=== PATIENT | male | born 1945 | race Caucasian/White ===

== ENCOUNTER → 2018-11-05 | Outpatient (CLI) | payer MEDICARE, MEDICAID ==
[2018-11-05 12:20] LABS: POTASSIUM 4.6 MMOL/L (3.6-5.0); SODIUM 141 MMOL/L (135-145)
[2018-11-05 12:21] LABS: ALANINE AMINOTRANSFERASE < 5 U/L (0-55); ALBUMIN 4.2 GM/DL (3.2-4.5); ALKALINE PHOSPHATASE 68 U/L (40-136); BILIRUBIN,TOTAL 0.4 MG/DL (0.1-1.0); BUN/CREATININE RATIO 19; CALCIUM 9.7 MG/DL (8.5-10.1); CARBON DIOXIDE 25 MMOL/L (21-32); CHLORIDE 104 MMOL/L (98-107); CREATININE SERUM 1.13 MG/DL (0.60-1.30); GFR ESTIMATED > 60; GLUCOSE 104 MG/DL (70-105); TOTAL PROTEIN 7.1 GM/DL (6.4-8.2)
[2018-11-05 14:53] LABS: CHOLESTEROL 150 MG/DL (< 200); HDL CHOLESTEROL 48 MG/DL (40-60); TRIGLYCERIDES 40 MG/DL (<150); VLDL CHOLESTEROL 8 MG/DL (5-40)
== END ==
LOC: LAB FS 11:04
PROVIDERS: ATTEND Pediatrics
DX: I10 Essential (primary) hypertension (principal); Z12.5 Encounter for screening for malignant neoplasm of prostate
CPT/HCPCS: 36415; 80053; 80061; 84153

== ENCOUNTER 2018-11-14 18:01 | Emergency (ER) | payer MEDICARE, MEDICAID ==
[~2018-11-14] VITALS: Ht 167.6 cm; Wt 83.0 kg
[2018-11-14 18:30] VITALS: BP 132/66
--- NOTE | 2018-11-14 18:51 | Diagnostic Imaging Report ---
INDICATION: Cough and congestion. PA and lateral chest. FINDINGS: Heart size and pulmonary vascularity are normal. Lungs are clear. There are no effusions or pneumothoraces. IMPRESSION: Negative chest. Dictated by: Dictated on workstation # [id number]
--- NOTE | 2018-11-14 19:03 | ED EENT ---
History of Present Illness General Chief Complaint: Oral/Throat Problems Stated Complaint: CONGESTION Source: patient Exam Limitations: no limitations History of Present Illness Date Seen by Provider: Nov 14, 2018 Time Seen by Provider: 19:04 Initial Comments Patient is a 73-year-old male with history of Parkinson's and MR who presents with his niece who is his dog food dough mixer. Patient has had nasal congestion rhinorrhea, sore throat and cough for the past 4 days. Patient feels as though the respiratory infection is now settled into his chest. No shortness breath, wheezing, history of COPD, CAD or congestive heart failure. No nausea vomiting or sweats. Tactile fever reported only today. No other acute symptoms or complaints. Patient has not been evaluated for symptoms prior to today's ED visit. Timing/Duration: gradual Location: nose, throat Prearrival Treatment: no prearrival treatment Modifying Factors: Improves With Lying Down Associated Symptoms: denies symptoms, cough, sore throat, voice change Allergies and Home Medications Patient Home Medication List Home Medication List Reviewed: Yes Review of Systems Review of Systems Constitutional: see HPI Eyes: See HPI Ears: See HPI Nose: see HPI Mouth: see HPI Throat: see HPI Respiratory: see HPI Cardiovascular: see HPI Musculoskeletal: see HPI Neurological: See HPI Hematologic/Lymphatic: See HPI Immunological/Allergic: see HPI Past Vxqcnup-Obxxme-Kldram Hx Past Med/Social Hx: Reviewed Nursing Past Med/Soc Hx Patient Social History Recent Foreign Travel: No Contact w/Someone Who Travel: No Physical Exam Height, Weight, BMI Height: '" Weight: lbs. oz. kg; BMI Method: General Appearance: WD/WN, no apparent distress Eyes: bilateral eye normal inspection, bilateral eye PERRL, bilateral eye EOMI, bilateral eye conjunctival inflammation Nose: normal inspection, active bleeding Mouth/Throat: normal mouth inspection, other (pharyngeal erythema) Neck: non-tender, full range of motion Cardiovascular: normal peripheral pulses, regular rate, rhythm Respiratory: chest non-tender, lungs clear Gastrointestinal: non tender, soft Neurologic/Psychiatric: kinesiotherapist II-XII nml as tested, no motor/sensory deficits, normal mood/affect Skin: normal color Progress/Results/Core Measures Results/Orders Lab Results Laboratory Tests Test 11/14/18 18:36 Range/Units Group A Streptococcus Screen POSITIVE H NEGATIVE My Orders Orders - TSERING LOZOYA DO Rapid Strep A Screen (11/14/18 18:26) Chest Pa/Lat (2 View) (11/14/18 18:26) Departure Communication (Admissions) Chest x-ray: No acute cardiopulmonary disease. Vital signs stable. Strep A positive. Anabolic's prescribed recommend watchful and PCP follow-up. Return precautions reviewed. Impression Primary Impression: Streptococcal sore throat Disposition: HOME, SELF-CARE Condition: Improved Departure-Patient Inst. Referrals: CHERI JAMES MD (PCP/Family) Primary Care Physician Patient Instructions: Strep Throat (DC) Add. Discharge Instructions: Please fill antibiotics and take medication as directed. Follow-up with your PCP in 5-7 days for reevaluation. All discharge instructions reviewed with patient and/or family. Voiced understanding. TSERING LOZOYA DO Nov 14, 2018 19:03
[2018-11-14] MEDS ORDERED: AMOX500C2 PO ×2 (19:09→19:12)
== END 2018-11-14 19:20 | disposition home or self-care (01) ==
LOC: EDUNIT# 18:01 → ER FS 18:03
DX: J02.0 Streptococcal pharyngitis (principal); G20 Parkinson's disease
CPT/HCPCS: 71046; 87430

== ENCOUNTER 2019-02-10 23:35 | Emergency (ER) | payer MEDICARE, MEDICAID ==
[~2019-02-10] VITALS: Ht 172 cm; Wt 79.0 kg
[~2019-02-10 23:35] MED LIST: AMOX500C2 PO
--- NOTE | 2019-02-10 23:40 | ED General ---
General Stated Complaint: RIGHT FOOT PAIN History of Present Illness Date Seen by Provider: Feb 10, 2019 Time Seen by Provider: 23:40 Initial Comments Patient brought in by family for evaluation of second third and fourth toe bruising noted tonight while niece was cutting his toenails. Reportedly he fell 2 days ago outside but this was not witnessed by anyone. He ambulates with his walker and has continued to ambulate at his baseline but he says it hurts more to do so at this time. Patient has a history of Parkinson's and MR. He denies weakness numbness or tingling. Allergies and Home Medications Allergies Coded Allergies: No Known Drug Allergies (Unverified , 11/14/18) Home Medications Amoxicillin 500 Mg Capsule, 500 MG PO BID Prescribed by: TSERING LOZOYA on 11/15/181751 Amoxicillin 500 Mg Capsule, 500 MG PO BID Prescribed by: TSERING LOZOYA on 11/14/181911 Patient Home Medication List Home Medication List Reviewed: Yes Review of Systems Review of Systems Constitutional: no symptoms reported EENTM: no symptoms reported Respiratory: no symptoms reported Cardiovascular: no symptoms reported Genitourinary: no symptoms reported Musculoskeletal: joint pain Skin: no symptoms reported All Other Systems Reviewed Negative Unless Noted: Yes Past Qojvzdc-Bobthy-Hrqmwy Hx Patient Social History 2nd Hand Smoke Exposure: No Recent Foreign Travel: No Contact w/Someone Who Travel: No Recent Hopitalizations: No Seasonal Allergies Seasonal Allergies: No Past Medical History Surgeries: Yes (right rotator cuff repair) Respiratory: No Cardiac: No Neurological: Yes Parkinson's Disease Genitourinary: No Gastrointestinal: No Musculoskeletal: No Endocrine: No HEENT: No Cancer: No Psychosocial: No Integumentary: No Blood Disorders: No Physical Exam Vital Signs Vital Signs - First Documented 02/10/19 23:42 Temp 37.0 Pulse 88 Resp 16 B/P (MAP) 160/90 (113) Pulse Ox 96 O2 Delivery Room Air Capillary Refill : Height, Weight, BMI Height: 5'6.00" Weight: 183lbs. oz. 83.320193px; BMI Method:Stated General Appearance: Chronically ill Respiratory: No Respiratory Distress Cardiovascular: Regular Rate, Rhythm Extremity: Other (R foot with bruising to proximal phalanges of dorsal 2nd, 3rd, 4th toes. Cap refill appx 2 seconds in all digits. 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 No erythema or warmth or drainage to indicate infection.) Neurologic/Psychiatric: No Motor/Sensory Deficits Progress/Results/Core Measures Suspected Sepsis SIRS Temperature: Pulse: Respiratory Rate: Blood Pressure / Mean: Results/Orders My Orders Orders - FRANCO DURHAM DO Foot 3 View Right (02/10/19 23:46) Vital Signs/I&O 02/10/19 23:42 Temp 37.0 Pulse 88 Resp 16 B/P (MAP) 160/90 (113) Pulse Ox 96 O2 Delivery Room Air Capillary Refill : Progress Note : Progress Note No s/s of emergent vascular or infectious condition. Likely bruising from trauma. Compartments soft. Will check XR and reassess. XR shows no acute changes to me. Will DC with soft shoe and ortho f/u. Rec PCP f/u as well. Patient discharged in stable condition. Departure Impression Primary Impression: Contusion of foot Disposition: 01 HOME, SELF-CARE Condition: Stable Departure-Patient Inst. Referrals: CHERI JAMES MD (PCP/Family) Primary Care Physician Patient Instructions: Contusion (DC) FRANCO DURHAM DO Feb 10, 2019 23:40
[2019-02-11 00:18] VITALS: BP 160/90
--- NOTE | 2019-02-11 06:31 | Diagnostic Imaging Report ---
CLINICAL HISTORY: Right foot pain. Fall 2 days ago. COMPARISON: None TECHNIQUE: 3 views of the right foot. FINDINGS: There is no acute fracture or dislocation of the right foot. Old fracture of the fifth right metatarsal is noted. Degenerative changes are present throughout the right foot with marginal osteophytes and joint space narrowing. A small amount of soft tissue edema is seen overlying the dorsum of the right foot. IMPRESSION: 1. No acute fracture or dislocation of the right foot. Small amount of soft tissue edema is seen overlying the dorsum of the right foot. 2. Degenerative changes in the right foot. Healed old fracture of the right fifth metatarsal is noted. Dictated by: Dictated on workstation # [id number]
== END 2019-02-11 00:20 | disposition home or self-care (01) ==
LOC: EDUNIT# 23:35 → ER FS 23:37
DX: S90.31XA Contusion of right foot, initial encounter (principal); G20 Parkinson's disease; W19.XXXA Unspecified fall, initial encounter
CPT/HCPCS: 73630

== ENCOUNTER 2020-07-09 18:42 | Emergency (ER) | payer MEDICARE, MEDICAID ==
[~2020-07-09] VITALS: Ht 162.5 cm; Wt 73.3 kg
--- NOTE | 2020-07-09 19:22 | ED Integumentary General ---
General Chief Complaint: Skin/Wound Problems Stated Complaint: DOG SCRATCH ON FACE/BLEEDING Nursing Triage Note: Patient was scratched by a dog on the right ear. Minimal bleeding is noted. Source: patient, family Exam Limitations: no limitations History of Present Illness Date Seen by Provider: Jul 09, 2020 Time Seen by Provider: 19:10 Initial Comments Patient is a 74-year-old male who presents to the emergency room today with a chief complaint of a laceration to the left ear. Patient states that he got in between 2 or 3 dogs that were fighting and suffered this laceration from the claw of one of the dogs. He states he was not bit. Patient denies any other complaints of illness or injury. No injuries otherwise to the head and neck and face. He denies any injuries to chest abdomen pelvis or extremities. Last tetanus shot was 5 years ago according to his from his grandson who is present with the patient. All other review of systems reviewed and negative except as stated. Timing/Duration: just prior to arrival Severity: mild Location: face (Left ear) Possible Cause: other (From his dog) Associated Symptoms: denies symptoms Allergies and Home Medications Allergies Coded Allergies: No Known Drug Allergies (Unverified , 11/14/18) Home Medications Amoxicillin 500 Mg Capsule, 500 MG PO BID Prescribed by: TSERING LOZOYA on 11/15/181751 Amoxicillin 500 Mg Capsule, 500 MG PO BID Prescribed by: TSERING LOZOYA on 11/14/18 191 Patient Home Medication List Home Medication List Reviewed: Yes Review of Systems Review of Systems Constitutional: see HPI EENTM: ear pain Respiratory: no symptoms reported Cardiovascular: no symptoms reported Gastrointestinal: no symptoms reported Musculoskeletal: no symptoms reported Skin: other (Laceration to the inferior portion of the left ear) All Other Systems Reviewed Negative Unless Noted: Yes Past Mbqwtrz-Fztnro-Sghlmn Hx Patient Social History Alcohol Use: Denies Use Smoking Status: Unknown if Ever Smoked 2nd Hand Smoke Exposure: No Recent Infectious Disease Expo: No Recent Hopitalizations: No Seasonal Allergies Seasonal Allergies: No Past Medical History Surgeries: Yes (right rotator cuff repair) Respiratory: No Cardiac: No Neurological: Yes Parkinson's Disease Genitourinary: No Gastrointestinal: No Musculoskeletal: No Endocrine: No HEENT: No Cancer: No Psychosocial: No Integumentary: No Blood Disorders: No Physical Exam Vital Signs Vital Signs - First Documented 07/09/20 18:45 Temp 36.5 Pulse 88 Resp 18 B/P (MAP) 150/92 (111) Pulse Ox 99 O2 Delivery Room Air Capillary Refill : Less Than 3 Seconds General Appearance: WD/WN, no apparent distress HEENT: PERRL/EOMI, other (1-1/2 cm laceration noted to the left ear at the "heel"/ inferior aspect) Neck: full range of motion Cardiovascular: regular rate, rhythm Respiratory: no respiratory distress, no accessory muscle use Gastrointestinal: non tender, soft Extremities: normal range of motion, non-tender, normal inspection Skin: normal color, warm/dry Skin Problem Character: other (laceration left ear, angulated at the "heel" of the ear, adjacent to the antitragus) Procedures/Interventions Wound Location: Ears Other Wound Location inferior portion of the left ear adjacent to the anti tragus Wound Length (cm): 1.5 Wound's Depth, Shape: superficial Wound Explored: clean Irrigated w/ Saline (ccs): 10 Anesthesia: 1% Lidocaine Volume Anesthetic (ccs): 1 Suture: Vicryl Suture Size: 5-0 Number of Sutures: 4 Sterile Dressing Applied?: No Progress/Results/Core Measures Results/Orders Vital Signs/I&O 07/09/20 18:45 Temp 36.5 Pulse 88 Resp 18 B/P (MAP) 150/92 (111) Pulse Ox 99 O2 Delivery Room Air Blood Pressure Mean: 111 Departure Impression Primary Impression: Laceration of left ear Qualified Codes: S01.312A - Laceration without foreign body of left ear, initial encounter Disposition: 01 HOME, SELF-CARE Condition: Stable Departure-Patient Inst. Decision time for Depature: 19:40 Referrals: CHERI JAMES MD (PCP/Family) Primary Care Physician Patient Instructions: Laceration Repair With Stitches (DC), Laceration Repair With [place] (DC) Add. Discharge Instructions: Keep the area clean and dry. You may put triple antibiotic ointment over the sutures twice daily for 2 days. If the area becomes red, swollen or drains please come back to the emergency room or visit with your primary care physician for further evaluation. The stitches will dissolve on their own after several weeks. Please take the antibiotics as prescribed. Scripts Amoxicillin/Potassium Clav (Augmentin 875-125 Tablet) 1 Each Tablet 1 EACH PO BID, #14 TAB 0 Refills Prov: GREGOR,KIM M MD 07/09/20 KIM BUNDY MD Jul 09, 2020 19:22
[2020-07-09] MEDS ORDERED: LIDOCAINE 1% INJ 20 ML 20 ML VIAL INJ ONE (19:30)
[2020-07-09] MEDS ORDERED: AMOX-358 PO (19:40)
[2020-07-09] MEDS ORDERED: AUGMENTIN 875 MG TAB (AMOXICILLIN/CLAVULANATE) PO STA (19:42)
[2020-07-09 19:47] VITALS: BP 150/92
== END 2020-07-09 19:47 | disposition home or self-care (01) ==
LOC: EDUNIT# 18:42 → ER FS 18:44
DX: S01.312A Laceration without foreign body of left ear, initial encounter (principal); W54.8XXA Other contact with dog, initial encounter
CPT/HCPCS: 99283

== ENCOUNTER 2020-11-28 02:42 | Emergency (ER) | payer MEDICARE, MEDICAID ==
[~2020-11-28] VITALS: Ht 162.5 cm; Wt 73.3 kg
[~2020-11-28 02:42] MED LIST changes: +AMOX-358 PO
--- NOTE | 2020-11-28 03:10 | ED Fall/Injury ---
General Chief Complaint: Trauma-Non Activation Stated Complaint: FALL /HEAD AND EYE INJURY History of Present Illness Date Seen by Provider: Nov 28, 2020 Time Seen by Provider: 02:50 Initial Comments 75-year-old male presents following a fall. Patient tripped over some close and fell onto a laundry basket. He has a small abrasion over his left eyelid and in his left lip. He has some pain in his left upper arm. Did not lose consciousness. Denies any pain in his hips or legs. Allergies and Home Medications Allergies Coded Allergies: No Known Drug Allergies (Unverified , 11/14/18) Home Medications Amoxicillin 500 Mg Capsule, 500 MG PO BID Prescribed by: TSERING LOZOYA on 11/15/181751 Amoxicillin 500 Mg Capsule, 500 MG PO BID Prescribed by: TSERING LOZOYA on 11/14/181911 Amoxicillin/Potassium Clav 1 Each Tablet, 1 EACH PO BID Prescribed by: KIM BUNDY on 07/09/201939 Patient Home Medication List Home Medication List Reviewed: Yes Review of Systems Review of Systems Constitutional: see HPI Eyes: See HPI Ears, Nose, Mouth, Throat: see HPI Respiratory: no symptoms reported Cardiovascular: no symptoms reported Gastrointestinal: no symptoms reported Musculoskeletal: other (Pain in his left upper arm/shoulder) Skin: other (Small laceration in his left side of his upper lip and in his left eyebrow) Past Mjpjefg-Fribys-Xhvbtg Hx Patient Social History Tobacco Use?: No Substance use?: No Alcohol Use?: No Pt feels they are or have been: No Seasonal Allergies Seasonal Allergies: No Past Medical History Surgeries: Yes (right rotator cuff repair) Respiratory: No Cardiac: No Neurological: Yes Parkinson's Disease Genitourinary: No Gastrointestinal: No Musculoskeletal: No Endocrine: No HEENT: No Cancer: No Psychosocial: No Integumentary: No Blood Disorders: No Physical Exam Vital Signs Vital Signs - First Documented 11/28/20 11/28/20 02:48 05:18 Temp 36.8 Pulse 81 Resp 12 B/P (MAP) 167/83 (111) Pulse Ox 95 O2 Delivery Room Air Capillary Refill : Height, Weight, BMI Height: 5'6.00" Weight: 183lbs. oz. 83.041392qv; 27.00 BMI Method:Stated General Appearance: no apparent distress HEENT: PERRL/EOMI, other (Small laceration left eyebrow, left upper lip) Neck: full range of motion, supple Cardiovascular: normal peripheral pulses, regular rate, rhythm Respiratory: lungs clear, normal breath sounds Gastrointestinal: non tender, soft Back: normal inspection Extremities: other (Tenderness low left upper arm/shoulder) Neurologic/Psychiatric: alert, normal mood/affect, oriented x 3 Skin: other (Lacerations left upper lip and left eyebrow) Procedures/Interventions Other Wound Location Left upper lip, left eyebrow Wound Length (cm): 1.5 Wound's Depth, Shape: linear Wound Explored: clean Other Closure Supply: Wound Adhesive Progress Patient tolerated well with with appropriate closure of both lacerations. Progress/Results/Core Measures Results/Orders My Orders Orders - RUBENS PERRY DO Ct Head Wo (11/28/20 03:10) Shoulder 2 View Left (11/28/20 03:10) Vital Signs/I&O 11/28/20 11/28/20 02:48 05:18 Temp 36.8 36.8 Pulse 81 81 Resp 12 12 B/P (MAP) 167/83 (111) 167/83 (111) Pulse Ox 95 O2 Delivery Room Air Room Air Progress Progress Note : Progress Note Patient with no acute findings on CT or shoulder x-ray. Patient stable and dis charged home Diagnostic Imaging Diagonstic Imaging: Xray Plain Films/CT/US/NM/MRI: other Comments No acute fracture dislocation left shoulder Reviewed: Reviewed by Me Diagonstic Imaging: CT Plain Films/CT/US/NM/MRI: head Comments No acute intracranial process Reviewed: Reviewed [facility] Departure Impression Primary Impression: Fall on same level from slipping, tripping and stumbling with subsequent striking against other object, initial encounter Additional Impressions: Laceration of left eyebrow without complication Qualified Codes: S01.112A - Laceration without foreign body of left eyelid and periocular area, initial encounter Laceration of lip without complication Qualified Codes: S01.511A - Laceration without foreign body of lip, initial encounter Disposition: 01 HOME, SELF-CARE Condition: Stable Departure-Patient Inst. Referrals: CHERI JAMES MD (PCP/Family) Primary Care Physician Patient Instructions: Laceration Repair With Glue ED, Preventing Falls ED Add. Discharge Instructions: Follow-up with your primary care provider as needed All discharge instructions reviewed with patient and/or family. Voiced understanding. RUBENS PERRY DO Nov 28, 2020 03:10
[2020-11-28 05:18] VITALS: BP 167/83
--- NOTE | 2020-11-28 06:27 | Diagnostic Imaging Report ---
PROCEDURE: CT head without contrast. TECHNIQUE: Multiple contiguous axial images were obtained through the brain without the use of intravenous contrast. Auto Exposure Controls were utilized during the CT exam to meet ALARA standards for radiation dose reduction. Indication: Fall with head injury, abrasion above the left eye, pain. Comparison: None. Discussion: White matter hypoattenuation is nonspecific though not greater than expected for age related chronic small vessel ischemic disease. Mild diffuse brain volume loss is also likely age related. No acute intracranial hemorrhage, mass, midline shift, or hydrocephalus. Mild left supraorbital soft tissue swelling. The orbits, mastoid air cells, and calvarium are otherwise unremarkable. Mild mucosal thickening noted within the ethmoid air cells and left sphenoid sinus. Impression: 1. No acute intracranial abnormality identified. Senescent changes as described. 2. Agree with preliminary report. Dictated by: Dictated on workstation # [id number]
--- NOTE | 2020-11-28 08:09 | Diagnostic Imaging Report ---
EXAMINATION: Left shoulder radiographs, 2 views. COMPARISON: None. HISTORY: 75-year-old male, fall. Left shoulder pain. FINDINGS: There are mild acromio clavicular degenerative changes without large undersurface osteophyte. The acromioclavicular joint is normally aligned. The humeral head is unremarkable in alignment relative to the glenoid on AP internal and external rotation views. There is no identified acute fracture. The glenohumeral joint space appears well-maintained. IMPRESSION: 1. No acute bony abnormality of the left shoulder. 2. Mild acromioclavicular degenerative changes without large undersurface osteophyte. Dictated by: Dictated on workstation # [id number]
== END 2020-11-28 05:18 | disposition home or self-care (01) ==
LOC: EDUNIT# 02:42 → ER FS 02:46
DX: S01.112A Laceration without foreign body of left eyelid and periocular area, initial encounter (principal); S01.511A Laceration without foreign body of lip, initial encounter; G20 Parkinson's disease; W01.198A Fall on same level from slipping, tripping and stumbling with subsequent striking against other object, initial encounter
CPT/HCPCS: 70450; 73030

== ENCOUNTER 2020-11-30 14:49 | Emergency (ER) | payer MEDICARE, MEDICAID ==
[2020-11-30 14:50] VITALS: BP 147/72
--- NOTE | 2020-11-30 15:34 | ED Lower Extremity ---
General Chief Complaint: Lower Extremity Stated Complaint: RT KNEE INJ Nursing Triage Note: Patient's family reports that patient fell two days ago. Patient was seen in the ED at that time and had a negative head CT. Today, EMS was called to patient's residence for right knee pain. Source: patient, EMS, old records History of Present Illness Date Seen by Provider: Nov 30, 2020 Time Seen by Provider: 14:52 Initial Comments 75 yo male presenting with complaint of pain in right knee since fall on November 28. He also reports having a "Charley Horse" in his left thigh a few days ago. He was having pain in the front of right knee that was worse with movement and bearing weight. He uses a walker to ambulate and has still been able to get around. He does have pain with walking. He was seen 2 days ago with the initial fall and had CT scan of his head that was negative for acute process but did not complain of knee pain when he came in for the fall initially 2 days ago. His family had told EMS that he could not walk or bear weight but the patient stood up and walked to the EMS cot without assistance. He states he had taken tylenol for the pain. Onset: other (November 28) Severity: moderate Pain/Injury Location: right knee (pain since he fell on it); left thigh (muscle cramp a few days ago but nothing since then) Method of Injury: fell Modifying Factors: Worse With Movement; Improves With Pain Medication Allergies and Home Medications Allergies Coded Allergies: No Known Drug Allergies (Unverified , 11/14/18) Home Medications Amoxicillin 500 Mg Capsule, 500 MG PO BID Prescribed by: TSERING LOZOYA on 11/15/181751 Amoxicillin 500 Mg Capsule, 500 MG PO BID Prescribed by: TSERING LOZOYA on 11/14/181911 Amoxicillin/Potassium Clav 1 Each Tablet, 1 EACH PO BID Prescribed by: KIM BUNDY on 07/09/201939 Patient Home Medication List Home Medication List Reviewed: Yes Review of Systems Constitutional: No chills, No fever EENTM: no symptoms reported Respiratory: no symptoms reported Cardiovascular: no symptoms reported Gastrointestinal: no symptoms reported Genitourinary: no symptoms reported Musculoskeletal: see HPI Skin: no symptoms reported Psychiatric/Neurological: Denies Numbness, Denies Tingling Past Plvbnuv-Aottie-Krxgjl Hx Seasonal Allergies Seasonal Allergies: No Past Medical History Surgeries: Yes (right rotator cuff repair) Respiratory: No Cardiac: No Neurological: Yes Parkinson's Disease Genitourinary: No Gastrointestinal: No Musculoskeletal: No Endocrine: No HEENT: No Cancer: No Psychosocial: No Integumentary: No Blood Disorders: No Physical Exam Vital Signs Vital Signs - First Documented 11/30/20 14:50 Temp 36.8 Pulse 100 Resp 18 B/P (MAP) 147/72 (97) Pulse Ox 96 O2 Delivery Room Air Capillary Refill : Less Than 3 Seconds Height, Weight, BMI Height: 5'6.00" Weight: 183lbs. oz. 83.984774tb; 27.00 BMI Method:Stated General Appearance: thin, other (appears chronically ill) HEENT: PERRL/EOMI, other (bruising around left eye) Neck: non-tender, full range of motion, supple, normal inspection Cardiovascular: normal peripheral pulses, regular rate, rhythm Legs: bilateral leg non-tender, bilateral leg normal inspection, bilateral leg normal range of motion, bilateral leg no evidence of injury Knees: bilateral knee normal range of motion, bilateral knee no evidence of injury; right knee pain (reports some mild pain with palpation and movement of right knee on anterior medial aspect. 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 With the new x- rays of both knees with this complaint of a charley horse or spasm in the left thigh. Progress Note #2: Progress Note X-rays show degenerative changes but no definite fracture. Treat with an Dominic bandage for support. Counseled on follow-up with primary care Diagnostic Imaging Diagonstic Imaging: Xray Plain Films/CT/US/NM/MRI: knee Comments [facility] [place], [place] NAME: YOSEPH OLSON [facility] REC#: [id number] PT STATUS: REG ER : 1945 PHYSICIAN: CARMEN YU MD ADMIT DATE: 11/30/20/ER FS Signed Date of Exam:11/30/20 KNEE 3 VIEW BILATERAL INDICATION: Fall with bilateral knee pain. Time of exam 3:22 p.m. Multiple views of bilateral knees were obtained. Both knees demonstrate some degenerative spurring of the tibial spines. The medial and lateral compartments are fairly well maintained. There is patellofemoral joint degenerative changes bilaterally. No fractures are identified. There is no joint effusion. IMPRESSION: Bilateral degenerative changes. No acute bony abnormality is detected. Dictated by: Dictated on workstation # [id number] Dict: 11/30/20 1531 Trans: 11/30/20 1549 [facility] [id number] Interpreted by: BHUPENDRA BURNETTE MD Electronically signed by: BHUPENDRA BURNETTE MD 11/30/20 1549 Reviewed: Reviewed by Me Departure Impression Primary Impression: Contusion of right knee, initial encounter Additional Impression: Muscle spasm of left calf Disposition: 01 HOME, SELF-CARE Condition: Stable Departure-Patient Inst. Decision time for Depature: 15:50 Referrals: CHERI JAMES MD (PCP/Family) Primary Care Physician Patient Instructions: Muscle Spasm ED, Minor Contusion ED, Using Cold for Pain, Using Heat for Pain Add. Discharge Instructions: No fractures or dislocation on xrays. Use dominic bandage for support and comfort. Use this for the next week on right knee. Continue to use walker and assistance with walking. Follow up with Dr. James and clinic for continued concerns All discharge instructions reviewed with patient and/or family. Voiced understanding. CARMEN YU MD Nov 30, 2020 15:34
--- NOTE | 2020-11-30 15:45 | Diagnostic Imaging Report ---
INDICATION: Fall with bilateral knee pain. Time of exam 3:22 p.m. Multiple views of bilateral knees were obtained. Both knees demonstrate some degenerative spurring of the tibial spines. The medial and lateral compartments are fairly well maintained. There is patellofemoral joint degenerative changes bilaterally. No fractures are identified. There is no joint effusion. IMPRESSION: Bilateral degenerative changes. No acute bony abnormality is detected. Dictated by: Dictated on workstation # [id number]
== END 2020-11-30 15:55 | disposition home or self-care (01) ==
LOC: EDUNIT# 14:49 → ER FS 14:50
DX: S80.01XA Contusion of right knee, initial encounter (principal); S00.12XA Contusion of left eyelid and periocular area, initial encounter; M62.831 Muscle spasm of calf; G20 Parkinson's disease; W19.XXXA Unspecified fall, initial encounter

== ENCOUNTER 2021-10-04 23:10 | Emergency (ER) | payer MEDICARE, MEDICAID ==
[2021-10-04 23:57] VITALS: BP 165/79
--- NOTE | 2021-10-04 23:57 | ED EENT ---
History of Present Illness General Chief Complaint: Nasal Problems Stated Complaint: NOSE BLEEDS Nursing Triage Note: Pt brought in by his daughter from [facility] with a nose bleed. 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 Bleeding continued 25 minutes before stopping on its own. No history of hypertension. Patient is not currently on any anticoagulation therapy. History obtained from the patient's niece. Timing/Duration: gradual Severity: mild Location: other Prearrival Treatment: other Modifying Factors: Improves With Other Associated Symptoms: other Allergies and Home Medications Allergies Coded Allergies: No Known Drug Allergies (Unverified , 11/14/18) Patient Home Medication List Home Medication List Reviewed: Yes Amoxicillin (Amoxicillin) 500 Mg Capsule, 500 MG PO BID Prescribed by: TSERING LOZOYA on 11/15/181751 Amoxicillin (Amoxicillin) 500 Mg Capsule, 500 MG PO BID Prescribed by: TSERING LOZOYA on 11/14/181911 Amoxicillin/Potassium Clav (Augmentin 875-125 Tablet) 1 Each Tablet, 1 EACH PO BID Prescribed by: KIM BUNDY on 07/09/201939 Review of Systems Review of Systems Constitutional: see HPI Nose: see HPI Past Vqwugue-Hmqlij-Ecqvzs Hx Patient Social History Tobacco Use?: No Use of E-Cig and/or Vaping dev: No Substance use?: No Alcohol Use?: No Pt feels they are or have been: No Seasonal Allergies Seasonal Allergies: No Past Medical History Surgeries: Yes (right rotator cuff repair) Respiratory: No Cardiac: No Neurological: Yes Parkinson's Disease Genitourinary: No Gastrointestinal: No Musculoskeletal: No Endocrine: No HEENT: No Cancer: No Psychosocial: No Integumentary: No Blood Disorders: No Physical Exam Vital Signs Vital Signs - First Documented 10/04/21 23:14 Pulse 93 Resp 18 B/P (MAP) 165/79 (107) Pulse Ox 94 O2 Delivery Room Air Height, Weight, BMI Height: 5'6.00" Weight: 183lbs. oz. 83.042708ma; 27.00 BMI Method:Stated General Appearance: no apparent distress Eyes: bilateral eye PERRL Ears: bilateral ear auricle normal, bilateral ear canal normal Nose: other (Dried blood, right nares, anterior septum) Progress/Results/Core Measures Results/Orders Vital Signs/I&O 10/04/21 23:14 Pulse 93 Resp 18 B/P (MAP) 165/79 (107) Pulse Ox 94 O2 Delivery Room Air Blood Pressure Mean: 107 Departure Communication (Admissions) Patient with recurrent epistaxis with controlled bleeding right nares. Blood pressure stable. Recommendations are watchful waiting ENT follow-up as needed Impression Primary Impression: Recurrent epistaxis Disposition: 01 HOME, SELF-CARE Condition: Stable Departure-Patient Inst. Referrals: CHERI JAMES MD (PCP/Family) Primary Care Physician Patient Instructions: Nosebleeds ED Add. Discharge Instructions: Please blow clots of nosebleed returns and hold pressure for 25 minutes. If bleeding persist, return to the ED. Follow-up with Dr. Reyes as needed. All discharge instructions reviewed with patient and/or family. Voiced understanding. TSERING LOZOYA DO October 04, 2021 23:57
== END 2021-10-05 | disposition home or self-care (01) ==
LOC: EDUNIT# 23:10 → ER FS 23:12
DX: R04.0 Epistaxis (principal)
CPT/HCPCS: 99282

== ENCOUNTER 2021-10-12 22:18 | Emergency (ER) | payer MEDICARE, MEDICAID ==
[~2021-10-12] VITALS: Ht 172.7 cm; Wt 80.2 kg
[2021-10-12] MEDS ORDERED: AUGMENTIN 875 MG TAB (AMOXICILLIN/CLAVULANATE) PO STA (22:42)
--- NOTE | 2021-10-12 22:48 | ED EENT ---
History of Present Illness General Chief Complaint: Nasal Problems Stated Complaint: NOSE BLEED Nursing Triage Note: Pt arrival to ER via [facility] from [facility] with complaint of intermittent nose bleed since 1999. Pt arrival to ER with patient holding pressure on nose. Nose not actively bleeding at this time. Pt states that he feels fine other then the nose bleed. Pt states that he has had it coterized before but is unsure who did it. History of Present Illness Date Seen by Provider: October 12, 2021 Time Seen by Provider: 22:18 Initial Comments 75-year-old male presenting with nosebleed that has been present since around 8 AM. He does take a blood thinner and had if he holds pressure would make the bleeding stopped but then it restarted when he released pressure. He has previously had cautery done for the bleeding. 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 Since he was continuing to bleed and they could not get it to stop this evening he came to the emergency department. He denies having any bleeding on arrival to the emergency department. There is no blood going down the back of his throat. He denies having any other symptoms such as dizziness, fever, chills, facial trauma, injury. Timing/Duration: abrupt Location: nose (Left nare) Prearrival Treatment: squeezing nostrils Associated Symptoms: No change in hearing, No cough, No drooling, No ear drainage, No facial pain/swelling, No fever, No malaise, No nasal congestion/drainage, No poor fluid intake, No poor solids intake, No sinus infection, No sore throat, No tooth pain, No voice change Allergies and Home Medications Allergies Coded Allergies: No Known Drug Allergies (Unverified , 11/14/18) Patient Home Medication List Home Medication List Reviewed: Yes Amoxicillin (Amoxicillin) 500 Mg Capsule, 500 MG PO BID Prescribed by: TSERING LOZOYA on 11/15/181751 Amoxicillin (Amoxicillin) 500 Mg Capsule, 500 MG PO BID Prescribed by: TSERING LOZOYA on 11/14/181911 Amoxicillin/Potassium Clav (Augmentin 875-125 Tablet) 1 Each Tablet, 1 EACH PO BID Prescribed by: KIM BUNDY on 07/09/201939 Amoxicillin/Potassium Clav (Amox Tr-K Clv 875-125 mg Tab) 875 Mg-125 Mg Tablet, 1 EACH PO BID Prescribed by: CARMEN YU on 10/12/21 8523 Review of Systems Review of Systems Constitutional: No chills, No dizziness, No fever Eyes: No Symptoms Reported Ears: No Symptoms Reported Nose: see HPI, clots, epistaxis Mouth: no symptoms reported Throat: no symptoms reported Respiratory: no symptoms reported Cardiovascular: no symptoms reported Gastrointestinal: no symptoms reported Musculoskeletal: no symptoms reported Skin: no symptoms reported Neurological: No Symptoms Reported Past Bqrfvab-Bcejat-Haqqoo Hx Patient Social History Tobacco Use?: No Use of E-Cig and/or Vaping dev: No Substance use?: No Alcohol Use?: No Pt feels they are or have been: No Immunizations Up To Date Influenza Vaccine Up-to-Date: Yes; Up-to-Date Seasonal Allergies Seasonal Allergies: No Past Medical History Surgery/Hospitalization HX: Recurrent epistaxis Surgeries: Yes (right rotator cuff repair) Respiratory: No Cardiac: No Neurological: Yes Parkinson's Disease Genitourinary: No Gastrointestinal: No Musculoskeletal: No Endocrine: No HEENT: No Cancer: No Psychosocial: No Integumentary: No Blood Disorders: No Physical Exam Vital Signs Vital Signs - First Documented 10/12/21 22:26 Temp 37.0 Pulse 109 Resp 20 B/P (MAP) 133/88 (103) Pulse Ox 97 O2 Delivery Room Air Height, Weight, BMI Height: 5'6.00" Weight: 183lbs. oz. 83.718534hs; 26.00 BMI Method:Stated General Appearance: WD/WN, no apparent distress Eyes: bilateral eye PERRL, bilateral eye EOMI Nose: normal inspection, dried blood; No sinus tenderness; other (No active bleeding or site of recent bleeding visualized on exam of the nares. No blood going down the back of his throat.) Mouth/Throat: pharynx normal Neck: non-tender, full range of motion, supple, normal inspection Cardiovascular: normal peripheral pulses Neurologic/Psychiatric: alert Skin: normal color, warm/dry Procedures/Interventions Nasal : Nasal Location: Left Inspection with: Otoscope Nasal Procedures: Hemostatic Nasal Ballon (7.5 cm anterior posterior Rhino Rocket) Progress After obtaining verbal consent from the patient and anterior-posterior 7.5 cm Rhino Rocket was placed on the left nare. This was done to try and prevent recurrent bleeding as there was no area of bleeding visualized to be able to cauterize. Will have him take an antibiotic to help prevent infection from blocking his sinuses. Encourage follow-up with ENT to have the Rhino Rocket removed and evaluate for area that might need cautery. Progress/Results/Core Measures Results/Orders My Orders Orders - CARMEN YU MD Amoxicillin/Clavulanate Tablet (Augmenti (10/12/21 22:42) Vital Signs/I&O 10/12/21 22:26 Temp 37.0 Pulse 109 Resp 20 B/P (MAP) 133/88 (103) Pulse Ox 97 O2 Delivery Room Air Blood Pressure Mean: 103 Progress Progress Note : Progress Note No active bleeding visualized on physical exam on arrival. No erythema could be cauterized for recent bleeding. Will place an anterior posterior Rhino Rocket to help prevent further bleeding. Start him on an antibiotic to prevent sinu sitis. Counseled to follow-up with ENT for removal of the Rhino Rocket within the next 5 to 7 days. Departure Impression Primary Impression: Recurrent epistaxis Disposition: 01 HOME, SELF-CARE Condition: Stable Departure-Patient Inst. Decision time for Depature: 22:49 Referrals: DAVIN WELCH MD, JOHN M MD (PCP/Family) Primary Care Physician Patient Instructions: Nosebleeds ED Add. Discharge Instructions: Follow-up with the ear nose and throat doctor within the next 5 to 7 days to have the packing removed from the left nose. When the ENT doctor removes the packing if they see an area that needs to be cauterized or he has recurrent bleeding they could address that while they are in the office. Take the antibiotic to help prevent sinusitis from having the packing in his nose. Follow-up with her primary care provider for further concerns All discharge instructions reviewed with patient and/or family. Voiced understanding. Scripts Amoxicillin/Potassium Clav (Amox Tr-K Clv 875-125 mg Tab) 875 Mg-125 Mg Tablet 1 EACH PO BID for Nasal Packing for 7 Days, #14 TAB 0 Refills Prov: CARMEN YU MD 10/12/21 CARMEN YU MD October 12, 2021 22:48
[2021-10-12] MEDS ORDERED: AMOX1TAB12 PO (22:52)
[2021-10-12 23:20] VITALS: BP 126/81
== END 2021-10-12 23:14 | disposition home or self-care (01) ==
LOC: EDUNIT# 22:18 → ER FS 22:19
DX: R04.0 Epistaxis (principal)
CPT/HCPCS: 99283

== ENCOUNTER 2021-10-28 14:47 | Emergency (ER) | payer MEDICARE, MEDICAID ==
[~2021-10-28] VITALS: Ht 177.8 cm; Wt 60.8 kg
[~2021-10-28 14:47] MED LIST changes: +AMOX1TAB12 PO
[2021-10-28 14:54] VITALS: BP 125/82
--- NOTE | 2021-10-28 15:31 | ED EENT ---
History of Present Illness General Chief Complaint: Nasal Problems Stated Complaint: EPISTAXIS Source: patient, old records, caregiver History of Present Illness Date Seen by Provider: Oct 28, 2021 Time Seen by Provider: 14:50 Initial Comments 76-year-old male presenting with recurrent nosebleed. This is the third time he has come to the emergency department in the last month. He does take a blood thinner and has had to have cauterized elation of his nose to help control the bleeding. He did follow-up with Dr. Reyes in the ENT clinic after he was seen by me on 12 October and had nasal packing done. They were concerned that he was having bleeding from both sides of his nose. He also had been spitting up some blood from blood that was draining down the back of his throat. He denied having any complaints otherwise. He had no headache, chest pain, cough, lightheadedness. No fever or chills. Timing/Duration: abrupt Location: nose Prearrival Treatment: squeezing nostrils Associated Symptoms: No change in hearing, No cough, No drooling, No ear drainage, No facial pain/swelling, No fever, No malaise, No nasal congestion/drainage, No poor fluid intake, No poor solids intake, No sinus infection, No sore throat, No tooth pain, No voice change Allergies and Home Medications Allergies Coded Allergies: No Known Drug Allergies (Unverified , 11/14/18) Patient Home Medication List Home Medication List Reviewed: Yes Amoxicillin (Amoxicillin) 500 Mg Capsule, 500 MG PO BID Prescribed by: TSERING LOZOYA on 11/15/181751 Amoxicillin (Amoxicillin) 500 Mg Capsule, 500 MG PO BID Prescribed by: TSERING LOZOYA on 11/14/181911 Amoxicillin/Potassium Clav (Augmentin 875-125 Tablet) 1 Each Tablet, 1 EACH PO BID Prescribed by: KIM BUNDY on 07/09/201939 Amoxicillin/Potassium Clav (Amox Tr-K Clv 875-125 mg Tab) 875 Mg-125 Mg Tablet, 1 EACH PO BID Prescribed by: CARMEN YU on 10/12/212251 Review of Systems Review of Systems Constitutional: No chills, No fever Eyes: No Symptoms Reported Ears: No Symptoms Reported Nose: clots, epistaxis (Caregiver from the group home reports that he is gett ing nosebleeds daily); denies pain, denies clear discharge, denies purulent discharge, denies serosanguinous discharge Mouth: no symptoms reported Throat: no symptoms reported Respiratory: no symptoms reported Cardiovascular: no symptoms reported Gastrointestinal: no symptoms reported Musculoskeletal: no symptoms reported Skin: no symptoms reported Neurological: No Symptoms Reported Hematologic/Lymphatic: No Symptoms Reported Immunological/Allergic: no symptoms reported Past Wqqpbzt-Kgbqed-Owenru Hx Seasonal Allergies Seasonal Allergies: No Past Medical History Surgery/Hospitalization HX: Recurrent epistaxis Surgeries: Yes (right rotator cuff repair) Respiratory: No Cardiac: No Neurological: Yes Parkinson's Disease Genitourinary: No Gastrointestinal: No Musculoskeletal: No Endocrine: No HEENT: No Cancer: No Psychosocial: No Integumentary: No Blood Disorders: No Physical Exam Vital Signs Vital Signs - First Documented 10/28/21 14:54 Temp 36.5 Pulse 109 Resp 24 B/P (MAP) 125/82 (96) Pulse Ox 95 O2 Delivery Room Air Height, Weight, BMI Height: 5'6.00" Weight: 183lbs. oz. 83.271158ym; 26.00 BMI Method:Stated General Appearance: WD/WN, no apparent distress Eyes: bilateral eye PERRL, bilateral eye EOMI Nose: No active bleeding; dried blood Mouth/Throat: other (blood clots in mouth and back of pharynx. ) Cardiovascular: normal peripheral pulses, regular rate, rhythm Respiratory: chest non-tender, lungs clear, normal breath sounds Neurologic/Psychiatric: alert, oriented x 3 Skin: warm/dry Procedures/Interventions Nasal : Nasal Location: Left Clots Cleared from Nasal: Patient Blowing Inspection with: Otoscope Nasal Procedures: Cauterized w/Silver Nitra Progress No definite site of bleeding seen on septal wall but silver nitrate used to cauterize a likely area that seemed irritated and may have recently been bleeding. Pt tolerated procedure well without any immediate complication. Watched for 30 min without recurrent epistaxis. Counseled on follow up and return precautions. Will have pt use vaseline or triple antibiotic ointment to help keep nose and septum moist. Follow up with Dr. Reyes and ENT. Progress/Results/Core Measures Results/Orders Vital Signs/I&O 10/28/21 14:54 Temp 36.5 Pulse 109 Resp 24 B/P (MAP) 125/82 (96) Pulse Ox 95 O2 Delivery Room Air Progress Progress Note #1: Progress Note No definite area of bleeding seen on exam. Will cauterize the left nare septum since he had most blood from that side. It is possible he has an area of bleeding further back in nare and septum but I can not see it. Encouraged the patient and NH staff to check with Dr. Reyes's office about having him seen for daily nosebleeds and follow up about this. In meantime, use humdifier and try applying a small amount of triple antibiotic or vaseline to septum and nare with a Qtip daily and as needed to help keep septum moist and limit nosebleeds. Progress Note #2: Progress Note After 30 minutes he had not had recurrent heavy bleeding. If he blots his nose with tissue he gets a small dab of blood on tissue. He dose have some clot further back in nare and this may be result of blood spotting on the tissue but not having active bleeding from septal wall. Continue with plan as outlined. Stress importance of checking with ENT rather than recurrent stop gap measures of coming to the ED. Departure Impression Primary Impression: Recurrent epistaxis Disposition: 01 HOME, SELF-CARE Condition: Stable Departure-Patient Inst. Decision time for Depature: 15:35 Referrals: CHERI JAMES MD (PCP) Primary Care Physician DAVIN REYES MD Patient Instructions: Nosebleeds ED, Humidifiers Add. Discharge Instructions: Use Vaseline or Triple antibiotic and take a Q-tip to place a small amount in the tip of your nose to help keep the nose and septum moist so it is less likely to bleed. Check back with Dr. Reyes and ENT for continued nosebleeds All discharge instructions reviewed with patient and/or family. Voiced understanding. CARMEN YU MD Oct 28, 2021 15:30
== END 2021-10-28 15:39 | disposition home or self-care (01) ==
LOC: EDUNIT# 14:47 → ER FS 14:49
DX: R04.0 Epistaxis (principal)
CPT/HCPCS: 30901

== ENCOUNTER 2022-09-05 10:41 | Emergency (ER) | payer MEDICARE, MEDICAID ==
[2022-09-05 10:52] LABS: BASOPHILS # (AUTO) 0.1 10^3/uL (0.0-0.1); BASOPHILS % (AUTO) 1 % (0-10); EOSINOPHILS # (AUTO) 0.2 10^3/uL (0.0-0.3); EOSINOPHILS % (AUTO) 2 % (0-10); HEMATOCRIT 46 % (40-54); HEMOGLOBIN 14.7 g/dL (13.3-17.7); LYMPHOCYTES % (AUTO) 17 % (12-44); MEAN CORPUSCULAR HEMOGLOBIN 31 pg (25-34); MEAN CORPUSCULAR HGB CONC 32 g/dL (32-36); MEAN CORPUSCULAR VOLUME 96 fL (80-99); MEAN PLATELET VOLUME 9.9 fL (9.0-12.2); MONOCYTES # (AUTO) 0.8 10^3/uL (0.0-1.0); MONOCYTES % (AUTO) 7 % (0-12); NEUTROPHILS # (AUTO) 8.6 10^3/uL (1.8-7.8); NEUTROPHILS % (AUTO) 73 % (42-75); PLATELET COUNT 369 10^3/uL (130-400); WHITE BLOOD COUNT 11.9 10^3/uL (4.3-11.0)
--- NOTE | 2022-09-05 10:55 | ED Abdominal Pain ---
General Chief Complaint: Abdominal/GI Problems Stated Complaint: LLQ PAIN Source of Information: Patient, EMS Exam Limitations: No Limitations History of Present Illness Date Seen by Provider: Sep 05, 2022 Time Seen by Provider: 10:35 Initial Comments 76-year-old male presents to the emergency department today for left lower quadrant abdominal pain. Symptoms started 2 days ago and have been persistent. Denies fevers chills nausea or vomiting. No changes in his stools. No bloody or dark tarry stools. No urinary symptoms. No testicular symptoms. He states he has never had pain like this before. All other systems reviewed and negative except documented per HPI. Voice recognition software was used to help create this chart Allergies and Home Medications Allergies Coded Allergies: No Known Drug Allergies (Unverified , 11/14/18) Patient Home Medication List Home Medication List Reviewed: Yes Amoxicillin (Amoxicillin) 500 Mg Capsule, 500 MG PO BID Prescribed by: TSERING LOZOYA on 11/15/181751 Amoxicillin (Amoxicillin) 500 Mg Capsule, 500 MG PO BID Prescribed by: TSERING LOZOYA on 11/14/18 191 Amoxicillin/Potassium Clav (Augmentin 875-125 Tablet) 1 Each Tablet, 1 EACH PO BID Prescribed by: KIM BUNDY on 07/09/20 194 Amoxicillin/Potassium Clav (Amox Tr-K Clv 875-125 mg Tab) 875 Mg-125 Mg Tablet, 1 EACH PO BID Prescribed by: CARMEN YU on 10/12/21 2252 Review of Systems Review of Systems Constitutional: see HPI Past [id number] Hx Patient Social History Tobacco Use?: No Use of E-Cig and/or Vaping dev: No Substance use?: No Alcohol Use?: No Immunizations Up To Date First/Initial COVID19 Vaccinat: Uknown Seasonal Allergies Seasonal Allergies: No Past Medical History Surgery/Hospitalization HX: Recurrent epistaxis Surgeries: Yes (right rotator cuff repair) Respiratory: No Cardiac: No Neurological: Yes Parkinson's Disease Genitourinary: No Gastrointestinal: No Musculoskeletal: No Endocrine: No HEENT: No Cancer: No Psychosocial: No Integumentary: No Blood Disorders: No Family Medical History Reviewed Nursing Family Hx No Pertinent Family Hx Physical Exam Vital Signs Vital Signs - First Documented 09/05/22 10:41 Temp 36.5 Pulse 82 Resp 16 B/P (MAP) 141/81 (101) Pulse Ox 96 O2 Delivery Room Air Capillary Refill : Height/Weight/BMI Height: 5'6.00" Weight: 183lbs. oz. 83.685619cs; 19.00 BMI Method:Stated General Appearance: WD/WN Respiratory: chest non-tender, lungs clear, normal breath sounds, no respiratory distress, no accessory muscle use Cardiovascular: regular rate, rhythm, no murmur Gastrointestinal: normal bowel sounds, soft, no organomegaly, tenderness (Tenderness palpation left lower abdomen with voluntary guarding. No rebound tenderness. No mass organomegaly. No skin changes.) Extremities: normal range of motion, normal inspection Back: normal inspection, no CVA tenderness, no vertebral tenderness Neurologic/Psychiatric: alert, normal mood/affect, oriented x 3 Skin: normal color, warm/dry Progress/Results/Core Measures Results/Orders Lab Results Laboratory Tests Test 09/05/22 10:45 09/05/22 12:22 Range/Units White Blood Count 11.9 H 4.3-11.0 10^3/uL Red Blood Count 4.73 4.30-5.52 10^6/uL Hemoglobin 14.7 13.3-17.7 g/dL Hematocrit 46 40-54 % Mean Corpuscular Volume 96 80-99 fL Mean Corpuscular Hemoglobin 31 25-34 pg Mean Corpuscular Hemoglobin Concent 32 32-36 g/dL Red Cell Distribution Width 16.3 H 10.0-14.5 % Platelet Count 369 130-400 10^3/uL Mean Platelet Volume 9.9 9.0-12.2 fL Immature Granulocyte % (Auto) 1 % Neutrophils (%) (Auto) 73 42-75 % Lymphocytes (%) (Auto) 17 12-44 % Monocytes (%) (Auto) 7 0-12 % Eosinophils (%) (Auto) 2 0-10 % Basophils (%) (Auto) 1 0-10 % Neutrophils # (Auto) 8.6 H 1.8-7.8 10^3/uL Lymphocytes # (Auto) 2.0 1.0-4.0 10^3/uL Monocytes # (Auto) 0.8 0.0-1.0 10^3/uL Eosinophils # (Auto) 0.2 0.0-0.3 10^3/uL Basophils # (Auto) 0.1 0.0-0.1 10^3/uL Immature Granulocyte # (Auto) 0.1 0.0-0.1 10^3/uL Sodium Level 140 135-145 MMOL/L Potassium Level 5.6 H 3.6-5.0 MMOL/L Chloride Level 107 98-107 MMOL/L Carbon Dioxide Level 21 21-32 MMOL/L Anion Gap 12 5-14 MMOL/L Blood Urea Nitrogen 34 H 7-18 MG/DL Creatinine 1.42 H 0.60-1.30 MG/DL Estimat Glomerular Filtration Rate 51 BUN/Creatinine Ratio 24 Glucose Level 156 H 70-105 MG/DL Calcium Level 9.2 8.5-10.1 MG/DL Corrected Calcium 9.2 8.5-10.1 MG/DL Total Bilirubin 0.2 0.1-1.0 MG/DL Aspartate Amino Transf (AST/SGOT) 32 5-34 U/L Alanine Aminotransferase (ALT/SGPT) 21 0-55 U/L Alkaline Phosphatase 102 40-136 U/L Total Protein 7.1 6.4-8.2 GM/DL Albumin 4.0 3.2-4.5 GM/DL Lipase 76 8-78 U/L Urine Color YELLOW Urine Clarity SLIGHTLY CLOUDY Urine pH 6.0 5-9 Urine Specific [place] 1.015 L 1.016-1.022 Urine Protein NEGATIVE NEGATIVE Urine Glucose (UA) NEGATIVE NEGATIVE Urine Ketones NEGATIVE NEGATIVE Urine Nitrite POSITIVE H NEGATIVE Urine Bilirubin NEGATIVE NEGATIVE Urine Urobilinogen 0.2 < = 1.0 MG/DL Urine Leukocyte Esterase TRACE H NEGATIVE Urine RBC (Auto) TRACE-L H NEGATIVE Urine RBC RARE /HPF Urine WBC 10-25 H /HPF Urine Squamous Epithelial Cells RARE /HPF Urine Crystals NONE /LPF Urine Bacteria MODERATE H /HPF Urine Casts PRESENT /LPF Urine Hyaline Casts RARE /LPF Urine Mucus NEGATIVE /LPF Urine Culture Indicated YES My Orders Orders - KARLIE LOVELL DO Cbc With Automated Diff (09/05/22 10:43) Comprehensive Metabolic Panel (09/05/22 10:43) Lipase (09/05/22 10:43) Ct Abdomen/Pelvis W (09/05/22 10:43) Ua Culture If Indicated (09/05/22 10:43) Iohexol Injection (Omnipaque 350 Mg/Ml 1 (09/05/22 11:00) Received Contrast (Hold Metformin- Contr (09/05/22 11:00) Ns (Ivpb) (Sodium Chloride 0.9% Ivpb Bag (09/05/22 11:00) Ns Iv 500 Ml (Sodium Chloride 0.9%) (09/05/22 11:45) Basic Metabolic Panel (09/05/22 12:17) Urine Culture (09/05/22 12:22) Medications Given in ED Current Medications Medications Dose Ordered Sig/Yodit Route Start Time Stop Time Status Last Admin Dose Admin Iohexol 100 ml ONCE ONCE IV 09/05/22 11:00 09/05/22 11:01 DC 09/05/22 11:37 80 ML Sodium Chloride 100 ml ONCE ONCE IV 09/05/22 11:00 09/05/22 11:01 DC 09/05/22 11:36 100 ML Vital Signs/I&O 09/05/22 10:41 Temp 36.5 Pulse 82 Resp 16 B/P (MAP) 141/81 (101) Pulse Ox 96 O2 Delivery Room Air Departure Communication (Admissions) Patient is hemodynamically stable with a nonsurgical abdominal exam. CT scan shows incidental finding of adrenal nodule, relayed to the patient. He does have gastric distention CT findings consistent with acid reflux. He is on no vomiting here. We will go ahead and discharge him with some Reglan and recommendations for PPI. Incidentally found to have a urinary tract infection. Given antibiotics. No evidence for diverticulitis, perforation or other emergent medical condition at this time. He did have hyperkalemia with slight elevation of his creatinine. He was given IV fluids. His numbers improved. I recommended he increase his fluids at home and rest. Follow-up with his primary doctor in 1 week for recheck of his labs. He states understanding. He is discharged in stable condition peer Impression Primary Impression: UTI (urinary tract infection) Qualified Codes: N30.01 - Acute cystitis with hematuria Additional Impressions: Gastric distention LLQ abdominal pain Hyperkalemia Adrenal nodule Disposition: HOME, SELF-CARE Condition: Stable Departure-Patient Inst. Referrals: CHERI JAMES MD (PCP/Family) Primary Care Physician Patient Instructions: Hyperkalemia (DC), Urinary Tract Infection, Adult ED Add. Discharge Instructions: You are seen in the emergency department today for abdominal pain. Your stomach is somewhat distended and CT scan appearance is consistent with acid reflux. There is no emergent medical condition. Take the Reglan as needed for belly pain. You do have an incidental finding of a cyst on your adrenal gland you may want to have this followed up with your primary doctor. Your potassium was slightly elevated as well as your kidney function. I gave you some IV fluids and these improved. Have this rechecked with your doctor in the next week or so. You do have mild urinary tract infection which could also be causing some pain. Take the antibiotics as prescribed until they are gone. Increase your fluids at home, rest as needed. Return to the emergency department for any severe concerns. All discharge instructions reviewed with patient and/or family. Voiced understanding. Scripts Cephalexin (Cephalexin) 500 Mg Tablet 500 MG PO BID for 7 Days, #14 TAB Prov: KARLIE LOVELL DO 09/05/22 Metoclopramide HCl (Reglan) 5 Mg Tablet 5 MG PO TID for Abdominal Pain for 5 Days, #15 TAB Prov: KARLIE LOVELL DO 09/05/22 KARLIE LOVELL DO Sep 05, 2022 10:55
[2022-09-05] MEDS ORDERED: HOLD METFORMIN - RECEIVED CONTRAST 20 ML VIAL IV SCH (11:00)
[2022-09-05] MEDS ORDERED: IOHEXOL 350 MG/ML 100 ML (OMNIPAQUE 350) VIAL IV ONE (11:00)
[2022-09-05] MEDS ORDERED: NS 100 ML (IVPB) BAG IV ONE (11:00)
[2022-09-05 11:10] LABS: CALCIUM 9.2 MG/DL (8.5-10.1); CREATININE SERUM 1.42 MG/DL (0.60-1.30); POTASSIUM 5.6 MMOL/L (3.6-5.0)
[2022-09-05 11:11] LABS: BILIRUBIN,TOTAL 0.2 MG/DL (0.1-1.0); TOTAL PROTEIN 7.1 GM/DL (6.4-8.2)
[2022-09-05] MEDS ORDERED: NS IV 500 ML 500 ML IV SCH (11:45)
--- NOTE | 2022-09-05 12:03 | Diagnostic Imaging Report ---
EXAMINATION: CT abdomen and pelvis with intravenous contrast. TECHNIQUE: Multiple contiguous axial images were obtained through the abdomen and pelvis after the uneventful administration of intravenous contrast. All CT scans use one or more of the following dose optimizing techniques: automated exposure control, MA and/or KvP adjustment based on patient size and exam type or iterative reconstruction. HISTORY: Left lower quadrant abdominal pain. COMPARISON: None available. FINDINGS: The heart is unremarkable. Subsegmental atelectasis is seen in the left lung base. A nodule is seen in the left adrenal gland measuring 1.6 x 0.9 cm. The right adrenal gland is unremarkable. Scattered calcified granulomas are seen in the liver and spleen. No suspicious lesions. The portal vein is patent. The gallbladder is nondistended. The pancreas and kidneys have a normal appearance. There is no pathologically enlarged mesenteric or retroperitoneal adenopathy. The stomach is distended with ingested contents. Reflux is seen to the distal esophagus. No evidence of small bowel obstruction. There is no free fluid or free air. No acute osseous abnormalities. There is right convexity curvature of the thoracolumbar spine. Bilateral pars defects are seen at L5 without evidence of spondylolisthesis. There is scattered calcified aortic and iliac atherosclerotic plaque without aneurysm. Ureters and bladder are grossly normal. There is no free air, loculated collection, or adenopathy in the pelvis. IMPRESSION: 1. Findings suggestive of gastritis with moderate distention of the stomach and reflux to the distal esophagus. No evidence of small bowel obstruction. No free fluid or free air. 2. Nonspecific nodule in the left adrenal gland measuring 1.6 cm. This is favored to represent an adrenal adenoma. If indicated nonemergent adrenal protocol CT of the abdomen could be considered. Dictated by: Dictated on workstation # [id number]
[2022-09-05 12:26] LABS: BILIRUBIN,URINE NEGATIVE (NEGATIVE); COLOR,URINE YELLOW; GLUCOSE, URINE (UA) NEGATIVE (NEGATIVE); KETONES,URINE NEGATIVE (NEGATIVE); LEUKOCYTE ESTERASE ,URINE TRACE (NEGATIVE); NITRITE,URINE POSITIVE (NEGATIVE); PROTEIN,URINE NEGATIVE (NEGATIVE)
[2022-09-05 12:38] LABS: CLARITY,URINE SLIGHTLY CLOUDY; HYALINE CASTS, URINE RARE /LPF; RBC,URINE RARE /HPF; SQUAMOUS EPITHELIAL CELL,UR RARE /HPF
[2022-09-05 12:39] LABS: BACTERIA,URINE MODERATE /HPF
[2022-09-05 12:52] LABS: POTASSIUM 5.1 MMOL/L (3.6-5.0)
[2022-09-05 12:53] LABS: CREATININE SERUM 1.36 MG/DL (0.60-1.30)
[2022-09-05] MEDS ORDERED: METO5TAB75 PO (12:53)
[2022-09-05] MEDS ORDERED: CEPH500T PO (12:53)
[2022-09-05 12:58] VITALS: BP 138/72
== END 2022-09-05 12:59 | disposition home or self-care (01) ==
LOC: EDUNIT# 10:41 → ER FS 10:43
DX: N39.0 Urinary tract infection, site not specified (principal); E87.5 Hyperkalemia; E27.8 Other specified disorders of adrenal gland; R14.0 Abdominal distension (gaseous); R79.89 Other specified abnormal findings of blood chemistry
CPT/HCPCS: 36415; 74177; 80048; 80053; 81000; 83690; 85025; 87088